=== PATIENT | female | born 1935 | race Caucasian/White ===

== ENCOUNTER → 2016-12-05 | Outpatient (CLI) | payer OTHER, MEDICARE ==
[~2016-12-05] MED LIST: ASPI81TA25 PO; ATOR-26 PO; CLOP1TAB15 PO; IMD/2 PO; INSDGI SC; LISI-729 PO; METO50TA7 PO; NTRGSL/4 UT; NVLGI SC; [UNRECOGNIZED DRUG - CODE] TOP
[2016-12-05 11:28] LABS: ESTIMATED AVERAGE GLUCOSE 171 mg/dl; HA1C FLAG Normal (Normal)
== END | disposition home or self-care (01) ==
LOC: C.LAB 10:39
PROVIDERS: ATTEND Internal Medicine Endocrinology, Diabetes & Metabolism
DX: E11.9 Type 2 diabetes mellitus without complications (principal)

== ENCOUNTER → 2017-01-03 | Outpatient (CLI) | payer OTHER, MEDICARE ==
--- NOTE | 2017-01-03 13:58 | MAMMOGRAPHY REPORT ---
BILATERAL DIGITAL SCREENING MAMMOGRAM WITH CAD: 01/03/2017 CLINICAL HISTORY: Routine screening. Patient has no complaints. TECHNIQUE: Current study was also evaluated with a Computer Aided Detection (CAD) system. Bilatera l CC and MLO views were obtained. COMPARISON: Comparison is made to exams dated: 01/01/2016 mammogram, 11/14/2014 mammogram, 11/02/2013 mammogram, 10/26/2012 mammogram, 10/17/2011 mammogram, and 10/15/2010 mammogram - [facility]. BREAST COMPOSITION: There are scattered areas of fibroglandular density in both breasts. FINDINGS: No suspicious masses, calcifications, or areas of architectural distortion are noted in e ither breast. There has been no significant interval change compared to prior exams. Bilateral katie gn-appearing calcifications are not significantly changed. IMPRESSION: ACR BI-RADS CATEGORY 2: BENIGN There is no mammographic evidence of malignancy. A 1 year screening mammogram is recommended. The p atient will receive written notification of the results. Approximately 10% of breast cancers are not detected with mammography. A negative mammographic repor t should not delay biopsy if a clinically suggestive mass is present. Hilary Lentz M.D. /:01/03/2017 13:47:32 Professor Of Special Education: Verito MELISSA(Shaun)(Dennis)(OLIVER[place]), [facility] letter sent: Normal 1/2 BI-RADS Code: ACR BI-RADS Category 2: Benign
== END | disposition home or self-care (01) ==
LOC: C.MAMM 10:34
PROVIDERS: ATTEND Internal Medicine
DX: Z12.31 Encounter for screening mammogram for malignant neoplasm of breast (principal)

== ENCOUNTER → 2017-02-18 | Outpatient (CLI) | payer OTHER, MEDICARE ==
[2017-02-18 10:02] LABS: ALT/SGPT 62 U/L (12-78); AST/SGOT 34 U/L (15-37); BLOOD UREA NITROGEN 14 mg/dl (7-18); BUN/CREATININE RATIO 18.4 (10-20); CALCIUM 8.5 mg/dl (8.5-10.1); CARBON DIOXIDE 24 mmol/L (21-32); CHLORIDE 109 mmol/L (98-107); CHOLESTEROL 81 mg/dl (0-200); CREATININE 0.74 mg/dl (0.60-1.20); GLUCOSE 151 mg/dl (70-99); SODIUM 142 mmol/L (136-145); TRIGLYCERIDES 92 mg/dl (0-150); VERY LOW DENSITY LIPOPROT CALC 18 mg/dl
[2017-02-18 10:12] LABS: ALB/GLOB RATIO 0.7 (0.9-2); ALKALINE PHOSPHATASE 83 U/L (45-117); CHOLESTEROL/HDL RATIO 2.3; HDL CHOLESTEROL 36 mg/dl; LDL CHOLESTEROL CALCULATED 27 mg/dl
[2017-02-18 10:20] LABS: ESTIMATED AVERAGE GLUCOSE 163 mg/dl; HA1C FLAG Normal (Normal)
== END | disposition home or self-care (01) ==
LOC: C.LAB 08:05
PROVIDERS: ATTEND Internal Medicine
DX: E11.65 Type 2 diabetes mellitus with hyperglycemia (principal); I10 Essential (primary) hypertension

== ENCOUNTER → 2017-08-15 | Outpatient (CLI) | payer OTHER, MEDICARE ==
[2017-08-15 10:01] LABS: ALT/SGPT 135 U/L (12-78); AST/SGOT 53 U/L (15-37); BLOOD UREA NITROGEN 14 mg/dl (7-18); BUN/CREATININE RATIO 19.8 (10-20); CALCIUM 8.3 mg/dl (8.5-10.1); CARBON DIOXIDE 23 mmol/L (21-32); CHLORIDE 112 mmol/L (98-107); CREATININE 0.71 mg/dl (0.60-1.20); GLUCOSE 129 mg/dl (70-99); POTASSIUM 3.8 mmol/L (3.5-5.1); SODIUM 142 mmol/L (136-145)
[2017-08-15 10:12] LABS: ALB/GLOB RATIO 0.7 (0.9-2); ALKALINE PHOSPHATASE 103 U/L (45-117); CHOLESTEROL 93 mg/dl (0-200); CHOLESTEROL/HDL RATIO 2.2; HDL CHOLESTEROL 43 mg/dl; LDL CHOLESTEROL CALCULATED 32 mg/dl; TRIGLYCERIDES 91 mg/dl (0-150); VERY LOW DENSITY LIPOPROT CALC 18 mg/dl
== END | disposition home or self-care (01) ==
LOC: C.LAB 08:27
PROVIDERS: ATTEND Internal Medicine
DX: I10 Essential (primary) hypertension (principal); E03.9 Hypothyroidism, unspecified; E11.9 Type 2 diabetes mellitus without complications; E78.5 Hyperlipidemia, unspecified; I25.10 Atherosclerotic heart disease of native coronary artery without angina pectoris

== ENCOUNTER → 2017-09-22 | Outpatient (CLI) | payer OTHER, MEDICARE ==
[2017-09-22 17:40] LABS: ALT/SGPT 40 U/L (12-78); AST/SGOT 29 U/L (15-37); BLOOD UREA NITROGEN 15 mg/dl (7-18); BUN/CREATININE RATIO 21.2 (10-20); CALCIUM 8.5 mg/dl (8.5-10.1); CARBON DIOXIDE 25 mmol/L (21-32); CHLORIDE 108 mmol/L (98-107); CREATININE 0.69 mg/dl (0.60-1.20); GLUCOSE 113 mg/dl (70-99); POTASSIUM 3.7 mmol/L (3.5-5.1); SODIUM 141 mmol/L (136-145)
[2017-09-22 17:49] LABS: URINE APPEARANCE CLEAR (CLEAR); URINE BILIRUBIN NEG (NEG); URINE COLOR YELLOW; URINE EPITHELIAL CELL AUTO 0-5 /lpf (0-5); URINE NITRITE POS (NEG); URINE PH 5.5 (4.5-7.5); URINE SPECIFIC GRAVITY 1.013 (1.000-1.030); UROBILINOGEN NEG (NEG)
[2017-09-22 17:51] LABS: ALB/GLOB RATIO 0.7 (0.9-2); ALKALINE PHOSPHATASE 74 U/L (45-117)
[2017-09-22 17:55] LABS: MANUAL MICROSCOPIC REQUIRED? NO; REVIEW REQ? NO
== END | disposition home or self-care (01) ==
LOC: C.LABBC 12:28
PROVIDERS: ATTEND Physician Assistant
DX: R39.9 Unspecified symptoms and signs involving the genitourinary system (principal); E03.9 Hypothyroidism, unspecified; I10 Essential (primary) hypertension; E78.5 Hyperlipidemia, unspecified

== ENCOUNTER → 2018-01-06 | Outpatient (CLI) | payer OTHER, MEDICARE ==
[~2018-01-06] MED LIST changes: -METO50TA7 PO; +METO50TA8 PO
--- NOTE | 2018-01-06 15:15 | MAMMOGRAPHY REPORT ---
BILATERAL DIGITAL SCREENING MAMMOGRAM TOMOSYNTHESIS WITH CAD: 01/06/2018 CLINICAL HISTORY: Routine screening. Patient has no complaints. TECHNIQUE: Breast tomosynthesis in addition to standard 2D mammography was performed. Current study was also evaluated with a Computer Aided Detection (CAD) system. COMPARISON: Comparison is made to exams dated: 01/03/2017 mammogram, 01/01/2016 mammogram, 11/14/2014 ma mmogram, 11/02/2013 mammogram, 10/26/2012 mammogram, and 10/17/2011 mammogram - [facility]. BREAST COMPOSITION: There are scattered areas of fibroglandular density in both breasts. FINDINGS: There is a 5 mm focal asymmetry in the upper outer posterior left breast. When comparing b ack to prior available mammograms, this has progressively decreased in size dating back to 2007, and most likely represents a decreasing cyst. A second focal asymmetry slightly inferior to the first is also stable dating back to at least 2007, therefore considered benign. There are a few scattered be nign-appearing calcifications. No suspicious mass, architectural distortion or cluster of suspicious microcalcifications is seen. IMPRESSION: ACR BI-RADS CATEGORY 1: NEGATIVE There is no mammographic evidence of malignancy. A 1 year screening mammogram is recommended. The pa tient will receive written notification of the results. Approximately 10% of breast cancers are not detected with mammography. A negative mammographic report should not delay biopsy if a clinically suggestive mass is present. Afsaneh Pabon M.D. ay/:01/06/2018 12:39:53 Project Coordinator: Adelina MELISSA(Shaun)(Dennis), [facility] letter sent: Normal 1/2 BI-RADS Code: ACR BI-RADS Category 1: Negative
== END | disposition home or self-care (01) ==
LOC: C.MAMM 10:51
PROVIDERS: ATTEND Internal Medicine
DX: Z12.31 Encounter for screening mammogram for malignant neoplasm of breast (principal)

== ENCOUNTER → 2018-02-16 | Outpatient (CLI) | payer OTHER, MEDICARE ==
[2018-02-16 10:19] LABS: BASO % 0.3 %; BASO ABS # 0.02 K/uL (0-0.2); EOS % 1.4 %; HEMATOCRIT 39.3 % (37-47); HEMOGLOBIN 13.1 g/dL (12.0-16.0); IG# 0.01 K/uL (0.00-0.02); LYMPH % 34.2 %; MEAN CORPUSCULAR HEMOGLOBIN 30.7 pg (25-34); MEAN CORPUSCULAR HGB CONC 33.3 g/dl (32-36); MEAN PLATELET VOLUME 10.5 fL (7.4-10.4); MONO % 7.4 %; MONO ABS # 0.54 K/uL (0.11-0.59); NEUT % 56.6 %; NEUT ABS # 4.15 K/uL (1.4-6.5); PLATELET COUNT 200 K/uL (130-400); RED CELL DISTRIBUTION WIDTH SD 46.8 fL (36.4-46.3); WHITE BLOOD COUNT 7.32 K/uL (4.8-10.8)
[2018-02-16 10:34] LABS: ALBUMIN 3.2 gm/dl (3.4-5.0); ALT/SGPT 51 U/L (12-78); BLOOD UREA NITROGEN 13 mg/dl (7-18); CALCIUM 8.4 mg/dl (8.5-10.1); CARBON DIOXIDE 24 mmol/L (21-32); CHOLESTEROL 87 mg/dl (0-200); CREATININE 0.78 mg/dl (0.60-1.20); GLUCOSE 128 mg/dl (70-99); POTASSIUM 3.8 mmol/L (3.5-5.1); SODIUM 140 mmol/L (136-145)
[2018-02-16 10:45] LABS: ALKALINE PHOSPHATASE 70 U/L (45-117); AST/SGOT 36 U/L (15-37); LDL CHOLESTEROL CALCULATED 20 mg/dl; TOTAL PROTEIN 7.1 gm/dl (6.4-8.2)
[2018-02-16 11:07] LABS: HEMOGLOBIN A1C 7.8 % (4.5-5.6)
== END | disposition home or self-care (01) ==
LOC: C.LAB 07:52
PROVIDERS: ATTEND Internal Medicine
DX: I10 Essential (primary) hypertension (principal); M81.0 Age-related osteoporosis without current pathological fracture; E55.9 Vitamin D deficiency, unspecified; E03.9 Hypothyroidism, unspecified; I25.10 Atherosclerotic heart disease of native coronary artery without angina pectoris; E78.5 Hyperlipidemia, unspecified; E11.9 Type 2 diabetes mellitus without complications

== ENCOUNTER 2018-06-16 19:40 | Emergency (ER) | payer OTHER, MEDICARE ==
[~2018-06-16] VITALS: Ht 162.6 cm; Wt 82.9 kg
[2018-06-16 19:48] VITALS: TEMP 37.1; Ht 162.6 cm; Wt 82.9 kg
[2018-06-16] MEDS ORDERED: OXYCODONE HCL IR 5 MG TAB (IMMEDIATE RELEASE) PO STA ×2 (19:49→22:05)
--- NOTE | 2018-06-16 20:23 | DIAGNOSTIC IMAGING REPORT ---
R KNEE 3 VIEWS, L KNEE 3 VIEWS CLINICAL HISTORY: Bilateral knee pain. COMPARISON STUDY: None. FINDINGS: The bones are osteopenic. No fracture or dislocation within the right or left knee. Trace right and small left knee effusions. 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 This is most pronounced at the bilateral patellofemoral, right lateral femorotibial, and left medial femorotibial compartments. IMPRESSION: 1. No fracture or dislocation within the right or left knee. 2. 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 3. Trace right and small left knee effusions. Electronically signed by: Paresh Coleman M.D. 06/16/2018 8:21 PM Dictated Date/Time: 06/16/2018 8:19 PM
[2018-06-16 22:18] VITALS: BP 165/79; PULSE 78; O2SAT 95
--- NOTE | 2018-06-17 01:11 | EMERGENCY ROOM VISIT NOTE ---
History Report prepared by Dl: Theresa Kaur Under the Supervision of: Dr. Ryan Erazo D.O. First contact with patient: 19:41 Stated Complaint: KNEE PAIN History of Present Illness The patient is a 83 year old female who presents to the Emergency Room with complaints of constant L knee pain beginning prior to arrival. She reports her L foot slipped in the bathtub while she was leaving, and her R foot remained stable on the mat outside the tub, causing her to fall into a split. The patient notes the pain worsens with movement, and describes it as a "fullness in the back of the knee." She states she never landed on her knees. The patient notes some pain in her R knee. She denies head trauma or LOC. Patient has no head pain, back pain, neck pain, belly pain or abdominal pain. Source of History: patient Onset: prior to arrival Position: knee (left) Quality: other ("fullness" ) Timing: constant Modifying Factors (Worsening): movement Associated Symptoms: No LOC Note: Associated symptom: R knee pain. Denies: head trauma. Review of Systems See HPI for pertinent positives & negatives. A total of 10 systems reviewed and were otherwise negative. Past Medical & Surgical Medical Problems: (1) Chest pain (2) Diet controlled gestational diabetes mellitus Family History Family history omitted due to patient's age. Social History Smoking Status: Never Smoker Smokeless Tobacco Use: No Alcohol Use: none Drug Use: none Occupation Status: retired Current/Historical Medications Scheduled Aspirin (Aspir-Low), 1 TAB PO DAILY Atorvastatin (Lipitor), 80 MG PO DAILY Clopidogrel (Plavix), 75 MG PO DAILY Insulin Aspart (Novolog), 5 UNITS SC WM Insulin Glargine (Lantus), 10 UNITS SC QPM Lisinopril (Zestril), 5 MG PO DAILY Metoprolol Succ (Toprol Xl) (Toprol-Xl), 50 MG PO DAILY Nitroglycerin (Nitrostat), 0.4 MG UT PRN Nitroglycerin (Nitro-Bid), 1 INCH TOP Q6H Scheduled PRN Loperamide Hcl (Imodium), 2 MG PO for GI Upset Allergies Coded Allergies: No Known Allergies (Unverified , 06/16/18) Physical Exam Vital Signs Date Time Temp Pulse Resp B/P (MAP) Pulse Ox O2 Delivery O2 Flow Rate FiO2 06/16/18 22:18 78 19 165/79 95 Room Air 06/16/18 21:05 58 16 166/82 95 Room Air 06/16/18 19:48 37.1 68 18 178/81 95 Room Air Physical Exam GENERAL: alert, well appearing, well nourished, no distress, non-toxic HEAD: normal cephalic, atraumatic EYE EXAM: normal conjunctiva, PERRL and EOM's grossly intact OROPHARYNX: no exudate, no erythema, lips, buccal mucosa, and tongue normal and mucous membranes are moist EARS: TMs clear b/l NECK: supple, no nuchal rigidity, no adenopathy, non-tender CHEST: stable to compression anteriorly and posteriorly LUNGS: clear to auscultation. Normal chest wall mechanics HEART: no murmurs, S1 normal and S2 normal ABDOMEN: abdomen soft, non-tender, normo-active bowel sounds, no masses, no rebound or guarding. PELVIS: stable to compression anteriorly and posteriorly BACK: Back is symmetrical on inspection and there is no deformity, no midline tenderness, no CVA tenderness. UPPER EXTREMITIES: full active and passive range of motion of all joints without tenderness to palpation LOWER EXTREMITIES: fullness in L posterior knee, pain with ROM/flexion greater than 20 degrees. Minimal pain in right posterior knee as well. Skin is intact. Full range of motion of all other joints without tenderness in the lower extremities. NEURO EXAM: Normal sensorium, cranial nerves II-XII grossly intact, normal speech, no gross weakness of arms, no gross weakness of legs. GCS: 15. Medical Decision & Procedures ER Provider Diagnostic Interpretation: Radiology results as stated below per my review and the radiologist's interpretation: R KNEE 3 VIEWS, L KNEE 3 VIEWS CLINICAL HISTORY: Bilateral knee pain. COMPARISON STUDY: None. FINDINGS: The bones are osteopenic. No fracture or dislocation within the right or left knee. Trace right and small left knee effusions. 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 This is most pronounced at the bilateral patellofemoral, right lateral femorotibial, and left medial femorotibial compartments. IMPRESSION: 1. No fracture or dislocation within the right or left knee. 2. 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 3. Trace right and small left knee effusions. Electronically signed by: Paresh Coleman M.D. 06/16/2018 8:21 PM Dictated Date/Time: 06/16/2018 8:19 PM R KNEE 3 VIEWS, L KNEE 3 VIEWS CLINICAL HISTORY: Bilateral knee pain. COMPARISON STUDY: None. FINDINGS: The bones are osteopenic. No fracture or dislocation within the right or left knee. Trace right and small left knee effusions. 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 This is most pronounced at the bilateral patellofemoral, right lateral femorotibial, and left medial femorotibial compartments. IMPRESSION: 1. No fracture or dislocation within the right or left knee. 2. 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 3. Trace right and small left knee effusions. Electronically signed by: Paresh Coleman M.D. 06/16/2018 8:21 PM Dictated Date/Time: 06/16/2018 8:19 PM Medications Administered Medications (Trade) Dose Ordered Sig/Lisandra Route Start Time Stop Time Status Last Admin Dose Admin Oxycodone HCl (Roxicodone Immediate Rel Tab) 5 mg NOW STAT PO 06/16/18 19:49 06/16/18 19:51 DC 06/16/18 20:03 5 MG Oxycodone HCl (Roxicodone Immediate Rel Tab) 5 mg NOW STAT PO 06/16/18 22:05 06/16/18 22:06 DC 06/16/18 22:05 5 MG ED Course ED COURSE: Vital signs were reviewed and showed situational hypertension. The patients medical record was reviewed The above diagnostic studies were performed and reviewed. ED treatments and interventions as stated above. 1940: The patient was evaluated in room C3. A complete history and physical examination was performed. 1948: Ordered Oxycodone HCl 5 mg PO 2103: I reevaluated and updated the patient. 2134: I discussed the patient's condition with her neighbor, Dr. Phillips, who said he will not pick the patient up. 2204: Upon reevaluation, the patient is resting. I discussed my findings with the patient and she understands and agrees with the treatment plan. [facility] will evaluate the patient in the morning. Ordered Oxycodone HCl 5 mg PO. Based on the patients age, coexisting illnesses, exam and lab findings the decision to treat as an outpatient was made. The patient remained stable while under my care. The patient appeared well at the time of discharge. Medical Decision Differential diagnoses include major intracranial, cervical, spinal, thoracic, abdominal, pelvic and neurologic injury. Fracture, contusion, sprain, strain, laceration, abrasions included as well. Patient is an 83-year-old female who presents the ER after slipping and doing a splint while getting out of the shower. She complains of bilateral knee pain. No other complaints. She notes she lowered herself to the ground did not hit anything. Left knee slightly worse than right. She does have full range of motion. X-rays of the knees show no acute fractures. Patient was given OxyIR 2. She was able to ambulate with a walker. She did not want to go home but we had no reasons to admit her at this time. Discussed with neighbors who is an ER physician; recommended admission. I noted that we are unable to admit her to the hospital as she meets no criteria at this time. I did offer rehab facility on several occasions but the patient does not want to go. Patient was evaluated by our care managers. Patient was eventually agreeable to going home tonight as she was ambulating with a walker without difficulty and allowing us to send a referral to [facility]. If she is having trouble tomorrow she was agreeable to going. Discussed with Pt concerning signs and symptoms to watch out for. Pt was instructed to follow up with their PCP and discussed with the patient their option to return to the ED at anytime for persistent or worsening symptoms. The appropriate anticipatory guidance and out-patient management, including indications for return to the emergency department, were explained at length to the patient and understood. Medication Reconcilliation Current Medication List: was personally reviewed by me Blood Pressure Screening Patient's blood pressure: Elevated blood pressure Blood pressure disposition: Elevated BP felt to be situational Impression Primary Impression: Knee pain, bilateral Scribe Attestation The scribe's documentation has been prepared under my direction and personally reviewed by me in its entirety. I confirm that the note above accurately reflects all work, treatment, procedures, and medical decision making performed by me. Departure Information Dispostion Home / Self-Care Forms HOME CARE DOCUMENTATION FORM, IMPORTANT VISIT INFORMATION Additional Instructions Please follow up with your primary care doctor with in the next 24 hours. Any worsening of your symptoms, please return to the ED immediately. This includes any fevers greater than 100.4, worsening pain, chest pain, shortness breath, persistent nausea, vomiting, unable to eat or drink, or any other concerning signs or symptoms from your standpoint. Please take Tylenol or Motrin as needed for pain. Please use the walker as given. Please follow-up with orthopedics. Problem Qualifiers Primary Impression: Knee pain, bilateral Chronicity: acute Qualified Codes: M25.561 - Pain in right knee; M25.562 - Pain in left knee
== END 2018-06-16 22:15 | disposition home or self-care (01) ==
LOC: EDBD 19:40 → C.EDC 19:42
DX: M25.561 Pain in right knee (principal); M25.562 Pain in left knee; W01.0XXA Fall on same level from slipping, tripping and stumbling without subsequent striking against object, initial encounter; Y92.012 Bathroom of single-family (private) house as the place of occurrence of the external cause; Z79.82 Long term (current) use of aspirin; Z79.02 Long term (current) use of antithrombotics/antiplatelets; Z79.4 Long term (current) use of insulin; Z79.899 Other long term (current) drug therapy